=== PATIENT | female | born 1960 | race Caucasian/White ===

== ENCOUNTER → 2020-11-17 08:50 | Outpatient (CLI) | payer MEDICARE | END | disposition home or self-care (01) | LOC: D.US 08:50 | PROVIDERS: ATTEND Surgery | DX: N18.6 End stage renal disease (principal) ==

== ENCOUNTER 2020-11-29 05:18 | Observation (INO) | payer MEDICARE, OTHER ==
[~2020-11-29] VITALS: Ht 162.6 cm; Wt 114.8 kg
--- NOTE | ~2020-11-29 | OP ---
PATIENT NAME: GABRIEL MIN MEDICAL RECORD: [id number] :60 LOCATION:D.M2 D.2101 ADMISSION DATE:11/29/20 SURGEON: JONO RIZVI MD DATE OF OPERATION: 11/29/2020 She was operated on 11/29/2020. REFERRED BY: Dr. Menezes. PREOPERATIVE DIAGNOSES: End-stage renal disease, dependent on hemodialysis and morbid obesity due to excess calories. OPERATION PERFORMED: 1. Creation of right brachiocephalic arteriovenous fistula. 2. Laparoscopy with lysis of adhesions and implantation of a peritoneal dialysis catheter with a subcutaneous extension and presternal exit. SURGEON: Jono Rizvi MD PREOPERATIVE NOTE: Ms. Min is a 60-year-old quite obese white female patient with end-stage renal disease, who needs a fistula, but also wants to do or tried to do home peritoneal dialysis. She is to have a fistula created in her right upper extremity today, I am planning a brachial artery to cephalic vein AV fistula and also laparoscopic implantation of the PD catheter with sternal extension. DESCRIPTION OF PROCEDURE: Under general endotracheal anesthesia, the patient's arm first was prepped and draped in a sterile manner. I examined her with ultrasound and applied a venous tourniquet proximally and noted that the cephalic vein and median cubital vein and brachial artery were all very suitable for creation of a fistula. I made a transverse incision and exposed these vessels and controlled the artery with doubly looped Silastic tapes. The vein was dissected distally where it was then ligated and bevelled and divided, I then flushed with heparinized saline and treated with topical papaverine. The artery was occluded and a small arteriotomy was made and the artery then flushed proximally and distally with heparinized saline. The vein was swung over to the artery without any tension and the anastomosis was performed with running 7-0 Prolene. When I was completed, the occluding loops and clamps were released, there was excellent flow immediately within the fistula and the suture line was hemostatic. The wound was irrigated with saline and then closed with interrupted inverted 3-0 Vicryl and running intracuticular 4-0 Stratafix, Dermabond glue and dressed with Maxorb AG, Tegaderm, and Cavilon skin prep. Doppler examination of the fistula revealed excellent continuous pulsatile flow and there was preservation of good flow to the radial and ulnar arteries at the wrist. The patient was then prepped and draped for laparoscopy with a Ocampo catheter in place. A vertical incision was then made to the left of the umbilicus and carried down to the anterior rectus sheath. The site of this incision was determined by measuring with the peritoneal dialysis catheter with the intention of placing the deep Dacron felt cuff within the rectus just deep to the anterior sheath. A 5-mm XL Optiview port was then placed in the left upper quadrant and pneumoperitoneum established with carbon dioxide. I inserted 8 mm autosuture OPERATIVE REPORT [id number] GABRIEL MIN [facility] port with a radial dilating sheath in to the rectus sheath and then viewing with laparoscopy. I angled this downward towards the pelvis for a couple of inches before entering the peritoneal space. The catheter was inserted through the 8 mm sheath and it was then removed. The deeper or the Dacron felt cuff was then placed within the rectus and a pursestring suture placed in the anterior rectus sheath of 0 Vicryl and tied. Enterolysis was performed with electrocautery and scissors. There was some bleeding. There was no evidence of any trauma to adjacent organs. The insufflation was allowed to escape after which 2 liters of saline was run into the abdomen rapidly through the catheter and then siphoned out and very easily revealing a very nice function of the PD catheter itself. The laparoscopic port was removed and closed with Vicryl and Dermabond glue. The larger abdominal incision was irrigated with saline. I then measured on the patient's abdomen and chest for making a second incision and one was made to the left of the midline just about midway between the costal margin and the umbilicus. The initial catheter was pulled through a subcutaneous tunnel upwards to that a new incision and the extension was then placed in that tunnel and tunneled upward to a proposed insertion site where another incision was made to the right of the sternum. The catheter was trimmed to fit. A titanium connector was placed and 2-0 Prolene ties used to secure the catheter segments to the connector. The catheter was put in a subcutaneous tunnel with a dependent skin exit site over the sternum using the Marc tunneler, the catheter was then attached to a transfer device and then again irrigated with saline and aspirated, free return of saline confirmed, it was then heparin locked, clamped and capped. The incisions were closed with interrupted inverted 3-0 Vicryl and running intracuticular 4-0 Stratafix and Dermabond glue and dressed with Maxorb AG Tegaderm, Cavilon skin prep. The catheter at the exit site was dressed with a Biopatch and 4 x 4 bordered gauze. The patient at that point was awakened from her anesthetic and in stable condition, extubated and taken to the recovery room. Blood loss during the operation was trivial and certainly replaced. Sponges, instruments and needles were accounted for at the termination of the operation, no surgical specimen was submitted for histopathology. PLAN: The patient will stay in observation overnight and then probably have dialysis here tomorrow before being discharged to home where she can resume her usual diet and activities, and routine dialysis schedule. She can resume her Eliquis on Saturday morning. I expect the AV fistula will mature and be usable in 6 to 8 weeks. I expect to start peritoneal dialysis in 3-4, weeks. She will need to have the catheter flushed on Saturday of this week and then again next week and weekly and as often as needed to remove bloody fluid and fibrin and clots from the peritoneal cavity and from the catheter itself. TRANSINT:[id number] Voice Confirmation ID: [id number] DOCUMENT ID: [id number] JONO RIZVI MD CC: [id number] DICTATION DATE: 12/07/20 1145 CREDIT COMPLIANCE OFFICER: 12/07/20 1443 DIS IN 11/30/20 [facility] [address] [place] [address]
[2020-11-29 05:54] LABS: BASOPHILS 1.5 % (0-2); EOSINOPHILS 2.3 % (0-7); HEMATOCRIT 38.2 % (36.0-48.0); HEMOGLOBIN 12.6 g/dL (12-16); LYMPHOCYTES 13.4 % (15-50); MCH 30.3 pg (26.0-34.0); MCV 91.9 fL (80.0-100.0); MEAN PLATELET VOLUME 7.3 fL (7.4-10.4); MONOCYTES 8.2 % (2-11); NEUTROPHILS 74.6 % (40-80); PLATELET COUNT 379 10x3/uL (130-400); RBC 4.15 10x6/uL (4.00-5.40); RDW 16.5 % (11.5-14.5); WBC 12.1 10x3/uL (4.8-10.8)
[2020-11-29 06:03] LABS: INR 1.08 (0.85-1.17); PROTIME 12.9 SECONDS (11.6-15.0)
[2020-11-29] MEDS ORDERED: NORMODYNE / TR300 MG PO (06:20)
[2020-11-29] MEDS ORDERED: CARDURA2 MG PO (06:21)
[2020-11-29] MEDS ORDERED: LIPITOR40 MG PO (06:21)
[2020-11-29] MEDS ORDERED: PROTONIX40 MG PO (06:22)
[2020-11-29] MEDS ORDERED: PHOSLO667 MG PO (06:22)
[2020-11-29] MEDS ORDERED: SOLIQUA 100 UNIT3 ML SC (06:23)
[2020-11-29] MEDS ORDERED: FUROSEMIDE40 MG PO (06:23)
[2020-11-29] MEDS ORDERED: DOXYCYCLINE HY100 M2 PO (06:23)
[2020-11-29] MEDS ORDERED: CELEXA40 MG PO (06:24)
[2020-11-29] MEDS ORDERED: HYDRALAZINE HC100 MG PO (06:24)
[2020-11-29 06:25] LABS: ANION GAP 13.4 mmol/L (8-16); CALCIUM 9.8 mg/dL (8.5-10.1); CARBON DIOXIDE 27.4 mmol/L (21.0-32.0); CREATININE - SERUM 3.8 mg/dL (0.6-1.3); POTASSIUM - SERUM 3.8 mmol/L (3.5-5.1)
[2020-11-29] MEDS ORDERED: TORSEMIDE20 MG PO (06:25)
[2020-11-29] MEDS ORDERED: PLAVIX75 MG PO (06:25)
[2020-11-29] MEDS ORDERED: ELIQUIS5 MG PO (06:25)
[2020-11-29] MEDS ORDERED: ISOSORBIDE MONO60 M1 (06:26)
[2020-11-29] MEDS ORDERED: ALDACTONE50 MG PO (06:27)
[2020-11-29] MEDS ORDERED: NORVASC5 MG PO (06:27)
[2020-11-29] MEDS ORDERED: SYNTHROID150 MCG PO (06:28)
[2020-11-29 07:37] VITALS: BP 150/67; BMI 44.2
--- NOTE | 2020-11-29 14:45 | NUR ---
PT DENIES PAIN. SLEEPING COMFROTABLY.
[2020-11-29 15:14] VITALS: BP 118/61
--- NOTE | 2020-11-29 19:30 | NUR ---
PT IN BED, EYES CLOSED, RESP EVEN AND UNLABORED, NO DISTRESS NOTED, CL IN REACH, SR UP X 2.
[2020-11-29 21:04] VITALS: BP 140/45
[2020-11-30 00:14] VITALS: BP 126/57
--- NOTE | 2020-11-30 03:06 | NUR ---
I have reviewed this patient and I concur with the Shift Assessment completed by the Licensed Practical Nurse today this shift.
[2020-11-30 04:36] VITALS: BP 139/58
[2020-11-30 05:27] LABS: BASOPHILS 0.8 % (0-2); EOSINOPHILS 0.2 % (0-7); HEMATOCRIT 32.1 % (36.0-48.0); HEMOGLOBIN 10.6 g/dL (12-16); LYMPHOCYTES 7.6 % (15-50); MCH 30.6 pg (26.0-34.0); MCV 92.9 fL (80.0-100.0); MEAN PLATELET VOLUME 7.8 fL (7.4-10.4); MONOCYTES 7.5 % (2-11); NEUTROPHILS 83.9 % (40-80); PLATELET COUNT 337 10x3/uL (130-400); RBC 3.45 10x6/uL (4.00-5.40); RDW 16.5 % (11.5-14.5)
[2020-11-30 05:36] LABS: WBC 16.6 10x3/uL (4.8-10.8)
[2020-11-30 05:40] LABS: ANION GAP 15.4 mmol/L (8-16); CALCIUM 8.6 mg/dL (8.5-10.1); CARBON DIOXIDE 26.8 mmol/L (21.0-32.0); CREATININE - SERUM 4.7 mg/dL (0.6-1.3); PHOSPHOROUS 4.8 mg/dL (2.5-4.9); POTASSIUM - SERUM 4.2 mmol/L (3.5-5.1)
[2020-11-30 08:10] VITALS: BP 147/75
--- NOTE | 2020-11-30 08:39 | NUR ---
AM MEDS GIVEN WITH PRN MEDICATION. RIGHT ARM RESERVE SIGN PLACED ON DOOR AND ABOVE BED. RR EVEN NON LABORED ON ROOM AIR. PT AWAKE AND ALERT, NO NEEDS VOICED. CLWR .
--- NOTE | 2020-11-30 08:44 | NUR ---
PT REPORTED LAB SYDNEE HER AM LAB FROM HER RIGHT ARM. NOTIFIED VIKA MARIE WITH NEPHRO AT THIS TIME. NO NEW ORDERS PLACED.
--- NOTE | 2020-11-30 10:08 | NUR ---
PT IV TO LEFT UPPER ARM UNABLE TO FLUSH. PAIN WHEN ATTEMPTING TO FLUSH LINE. NEW IV STARTED TO LEFT FOREARM X1 ATTEMPT, BLOOD RETURN NOTED. PRN PAIN MEDICATION GIVEN D/T PAIN TO ABD AND RIGHT ARM. ICE WATER GIVEN, NO FURTHER NEEDS VOICED. CLWR.
[2020-11-30 10:50] VITALS: BP 119/39
[2020-11-30 12:46] VITALS: Ht 162.6 cm; Wt 114.8 kg
--- NOTE | 2020-11-30 15:53 | NUR ---
PT ARRIVED FROM [facility] AT THIS TIME. PT RR EVEN NON LABORED, PT STATES SHE IS READY TO GO HOME. NOTIFIED PT WE ARE WAITING ON A PRESCRIPTION. PT STATES UNDERSTANDING, DENIES NEEDING ASSISTANCE GETTING DRESSED. NO FURTHER NEEDS VOICED. CLWR.
--- NOTE | 2020-11-30 16:16 | NUR ---
D/C INSTRUCTIONS PROVIDED AT THIS TIME AND WRITTEN PRESCRIPTION GIVEN TO PT (COPY IN CHART). PT STATES UNDERSTANDING, DENIES ANY QUESTIONS. PT FAMILY IN ROUTE TO PICK PT UP. IV D/C, CATHETER INTACT, DRESSING APPLIED. CLWR.
--- NOTE | 2020-11-30 17:00 | NUR ---
PT WHEELED TO PRIVATE VEHICLE AT THIS TIME WITH ALL BELONGINGS AT THIS TIME WITH AIDE. NO DISTRESS NOTED ON DEPARTURE.
== END 2020-11-30 17:04 | disposition home or self-care (01) ==
LOC: D.OPS 05:18 → D.M2 14:59 → OBSVTIME 15:00 → D.M2 11-30 17:04
PROVIDERS: Internal Medicine Nephrology; ADMIT Surgery; ATTEND Surgery
DX: N18.6 End stage renal disease (principal); Z99.2 Dependence on renal dialysis; E66.01 Morbid (severe) obesity due to excess calories

== ENCOUNTER 2020-12-26 14:46 | Inpatient (IN) | payer MEDICARE, OTHER ==
[~2020-12-26] VITALS: Ht 162.6 cm; Wt 118.4 kg
--- NOTE | 2020-12-26 01:00 | NUR ---
CHANGED DRESSING TO PTS INFECTED INCISION ON LLQ OF ABDOMEN WHEN PT ARRIVED TO FLOOR FROM DIALYSIS. PTS 4X4 DRESSINGS ARE COMPLETELY SATURATED WITH BLOOD AT THIS TIME. NEW PRESSURE DRESSING PLACED W/ 2 ABD PADS & SILK TAPE.
[~2020-12-26 14:46] MED LIST: ALDACTONE50 MG PO; CARDURA2 MG PO; CELEXA40 MG PO; DOXYCYCLINE HY100 M2 PO; ELIQUIS5 MG PO; FUROSEMIDE40 MG PO; HYDRALAZINE HC100 MG PO; ISOSORBIDE MONO60 M1; LIPITOR40 MG PO; NORMODYNE / TR300 MG PO; NORVASC5 MG PO; PHOSLO667 MG PO; PLAVIX75 MG PO; PROTONIX40 MG PO; SOLIQUA 100 UNIT3 ML SC; SYNTHROID150 MCG PO; TORSEMIDE20 MG PO
--- NOTE | 2020-12-26 15:28 | NUR ---
RECEIVED PT TO ROOM 2112 VIA WHEELCHAIR. PT A/O X4, RESP EVEN AND NONLAOBORED ON RA. NOTICED ABD DRESSING SATURATED. PD CATH TO STERNAL AREA. RT AV FISTULA WITH BRUIT AND THRILL NOTED. ORIENTED PT TO ROOM AND CALL LIGHT, WILL ASSESS PT AND START PLAN OF CARE.
[2020-12-26 15:57] VITALS: BP 131/50
[2020-12-26 16:19] LABS: BASOPHILS 1.1 % (0-2); EOSINOPHILS 3.4 % (0-7)
[2020-12-26 16:20] LABS: LYMPHOCYTES 16.2 % (15-50); MCH 30.4 pg (26.0-34.0); MCHC 31.7 g/dL (31.0-37.0); MEAN PLATELET VOLUME 7.6 fL (7.4-10.4); MONOCYTES 8.4 % (2-11); NEUTROPHILS 70.9 % (40-80); PLATELET COUNT 388 10x3/uL (130-400); RBC 2.19 10x6/uL (4.00-5.40); RDW 17.1 % (11.5-14.5); WBC 8.2 10x3/uL (4.8-10.8)
[2020-12-26 16:25] LABS: ANION GAP 15.7 mmol/L (8-16); CALCIUM 8.1 mg/dL (8.5-10.1); CARBON DIOXIDE 25.4 mmol/L (21.0-32.0); CREATININE - SERUM 5.3 mg/dL (0.6-1.3); POTASSIUM - SERUM 4.1 mmol/L (3.5-5.1)
--- NOTE | 2020-12-26 16:32 | NUR ---
PT TO DIALYSIS, VIA BED, ANTIBIOTICS SENT DOWN WITH PT TO BE INFUSED DURING DIALYSIS.
[2020-12-26 16:55] LABS: HEMOGLOBIN 6.7 g/dL (12-16)
[2020-12-26 17:31] VITALS: BMI 45.0
[2020-12-26 20:00] VITALS: BP 133/71
--- NOTE | 2020-12-26 20:30 | NUR ---
REPORT RECEIVED. PT A&O, UP ON BEDSIDE. NO S/S OF DISTRESS OBSERVED. RR EVEN & UNLABORED ON RA. WILL ATTEMPT TO GAIN IV ACCESS THIS SHIFT. R CHEST HEMESPLIT, R AV FISTULA W/ BRUIT/THRILL; R ARM RESERVE. DRESSING CHANGES TO LLQ INFECTED INCISION, PD CATH SITE, AND H/S CATH SITE. BED LOCKED AND LOWERED, CL IN REACH. WILL CONT POC.
--- NOTE | 2020-12-26 23:00 | NUR ---
IV ACCESS GAINED; 20G L FA X4 STICKS. PT TOLERATED WELL. NO S/S OF DISTRESS OBSERVED. NO NEEDS VOICED AT THIS TIME.
[2020-12-27] VITALS: BP 132/55
[2020-12-27 04:00] VITALS: BP 131/50
[2020-12-27 07:11] LABS: EOSINOPHILS 5.4 % (0-7); HEMATOCRIT 23.5 % (36.0-48.0); LYMPHOCYTES 17.1 % (15-50); MCH 30.8 pg (26.0-34.0); MCHC 33.8 g/dL (31.0-37.0); MEAN PLATELET VOLUME 7.4 fL (7.4-10.4); MONOCYTES 10.5 % (2-11); PLATELET COUNT 360 10x3/uL (130-400); RBC 2.59 10x6/uL (4.00-5.40); RDW 16.1 % (11.5-14.5); WBC 7.3 10x3/uL (4.8-10.8)
[2020-12-27 07:28] LABS: INR 1.26 (0.85-1.17); PROTIME 14.7 SECONDS (11.6-15.0)
[2020-12-27 07:36] LABS: ANION GAP 13.9 mmol/L (8-16); CALCIUM 8.1 mg/dL (8.5-10.1); CARBON DIOXIDE 28.4 mmol/L (21.0-32.0); VANCOMYCIN - RANDOM 6.8 ug/mL (10.0-20.0)
[2020-12-27 07:37] LABS: CREATININE - SERUM 3.7 mg/dL (0.6-1.3); POTASSIUM - SERUM 3.3 mmol/L (3.5-5.1)
[2020-12-27 08:00] VITALS: BP 138/58
[2020-12-27 12:00] VITALS: BP 138/52
[2020-12-27 12:47] VITALS: Ht 162.6 cm; Wt 118.4 kg
--- NOTE | 2020-12-27 13:15 | NUR ---
PRE-OPS GIVEN. TO OR BY BED.
[2020-12-27 15:34] VITALS: BP 152/65
--- NOTE | 2020-12-27 15:42 | NUR ---
BACK FROM OR. VS WNL. W/V TO ABD CDI. WILL CONT. PLAN OF CARE.
--- NOTE | 2020-12-27 18:31 | MORECARE ---
CASE MANAGEMENT DISCHARGE SUMMARY PATIENT: GABRIEL MIN UNIT: [id number] ADM DATE: 12/26/20 AGE: 60 : 60 SEX: F ROOM/BED: [facility] AUTHOR: FUNMI LOZADA PHYSICIAN: REFERRING PHYSICIAN: SHARRI RUIZ MD DATE OF SERVICE: 12/27/20 Case Management Discharge Planning Summary DCP REVIEW SUMMARY ANTICIPATED D/C DATE: EXPECTED LOS : CASE STATUS: DCP Initiated INITIAL REVIEW: 12/26/2020 INITIAL REVIEWER: Mehnaz Maxwell FINAL DISCHARGE DISPOSITION: : FINAL REVIEWER: FINAL REVIEW DATE: DCP Focus Questions & Answers QUESTION: ANSWER : PATIENT: GABRIEL MIN ENCOUNTER: [id number] MEDICAL RECORD#: [id number] ADMISSION DATE: 12/26/2020 DISCHARGE DATE: ATTENDING MD: SHARRI TAYLOR : AGE: 60 MARITAL STATUS: W DC PLAN ID: [id number] FACILITY: [facility] PRINTED ON: 12/27/20 18:31 CT All edits/amendments must be made on the electronic document DICTATION DATE: 12/27/201830 CATALYST IMPREGNATOR: ANASTASIA 12/27/201830 RPT#: [id number] DC DATE: STATUS: ADM IN [facility] [address] [place] [address] END OF REPORT
[2020-12-27 19:00] VITALS: BP 124/44
--- NOTE | 2020-12-27 20:00 | NUR ---
REPORT RECEIVED. PT A&O, RESTING IN BED QUIETLY. NO S/S OF DISTRESS OBSERVED. RR EVEN & UNLABORED ON 2L. IV TO L FA PATENT, SL. BED LOCKED AND LOWERED, CL IN REACH. WILL CONT POC.
[2020-12-28] VITALS: BP 129/50
[2020-12-28 04:00] VITALS: BP 143/44
[2020-12-28 04:44] LABS: BASOPHILS 1.1 % (0-2); EOSINOPHILS 5.1 % (0-7); HEMATOCRIT 24.4 % (36.0-48.0); HEMOGLOBIN 8.1 g/dL (12-16); LYMPHOCYTES 18.9 % (15-50); MCH 30.6 pg (26.0-34.0); MCV 92.7 fL (80.0-100.0); MEAN PLATELET VOLUME 7.2 fL (7.4-10.4); MONOCYTES 11.6 % (2-11); NEUTROPHILS 63.3 % (40-80); PLATELET COUNT 375 10x3/uL (130-400); RBC 2.63 10x6/uL (4.00-5.40); RDW 16.3 % (11.5-14.5); WBC 7.6 10x3/uL (4.8-10.8)
[2020-12-28 05:03] LABS: RETIC 2.37 % (0.45-2.28)
[2020-12-28 05:11] LABS: % SATURATION 15 % (15-55); IRON 25 ug/dl (35-150); TOTAL IRON BIND CAPACITY 157 ug/dl (260-445); UNSAT IRON BIND CAPACITY 132 ug/dl (150-375)
[2020-12-28 05:44] LABS: ANION GAP 11.1 mmol/L (8-16); CALCIUM 8.5 mg/dL (8.5-10.1); CREATININE - SERUM 4.5 mg/dL (0.6-1.3); VANCOMYCIN - RANDOM 16.3 ug/mL (10.0-20.0)
[2020-12-28 05:50] LABS: POTASSIUM - SERUM 4.1 mmol/L (3.5-5.1)
--- NOTE | 2020-12-28 07:00 | NUR ---
PT LYING IN BED WITH HOB ELEVATED 45 DEGREES. RESP EVEN AND UNLABORED. AAO X4. O2 VIA NC AT [address] WOUND VAC IN PLACE. DENIES NEEDS AT THIS TIME. CLIR. BED IN LOWEST POSITION. SIDE RAILS X2
[2020-12-28 08:00] VITALS: BP 138/49
--- NOTE | 2020-12-28 08:55 | NUR ---
PT LEFT UNIT FOR DIALYSIS ACCOMPANIED BY HOSPITAL STAFF
--- NOTE | 2020-12-28 12:30 | NUR ---
PT RETURNED TO UNIT FROM DIALYSIS ACCOMPANIED BY HOSPITAL STAFF
--- NOTE | 2020-12-28 13:16 | MORECARE ---
CASE MANAGEMENT DISCHARGE SUMMARY PATIENT: GABRIEL MIN UNIT: [id number] ADM DATE: 12/26/20 AGE: 60 : 60 SEX: F ROOM/BED: [facility] AUTHOR: FUNMI LOZADA PHYSICIAN: REFERRING PHYSICIAN: SHARRI RUIZ MD DATE OF SERVICE: 12/28/20 Case Management Discharge Planning Summary DCP REVIEW SUMMARY ANTICIPATED D/C DATE: EXPECTED LOS : CASE STATUS: DCP Initiated INITIAL REVIEW: 12/26/2020 INITIAL REVIEWER: Mehnaz Maxwell FINAL DISCHARGE DISPOSITION: : FINAL REVIEWER: FINAL REVIEW DATE: DCP Focus Questions & Answers QUESTION: ANSWER : PATIENT: GABRIEL MIN ENCOUNTER: [id number] MEDICAL RECORD#: [id number] ADMISSION DATE: 12/26/2020 DISCHARGE DATE: ATTENDING MD: SHARRI TAYLOR : AGE: 60 MARITAL STATUS: W DC PLAN ID: [id number] FACILITY: [facility] PRINTED ON: 12/28/20 13:15 CT All edits/amendments must be made on the electronic document DICTATION DATE: 12/28/20 [address] YARN MAN: DM 12/28/20 1315 RPT#: [id number] DC DATE: STATUS: ADM IN [facility] [address] [place] [address] END OF REPORT
[2020-12-28 16:00] VITALS: BP 148/53
[2020-12-28 23:38] VITALS: BP 153/62
[2020-12-29 05:00] VITALS: BP 147/59
[2020-12-29 06:47] LABS: BASOPHILS 1.2 % (0-2); EOSINOPHILS 7.2 % (0-7); HEMATOCRIT 24.4 % (36.0-48.0); HEMOGLOBIN 8.1 g/dL (12-16); LYMPHOCYTES 24.5 % (15-50); MCH 30.9 pg (26.0-34.0); MCHC 33.3 g/dL (31.0-37.0); MCV 92.9 fL (80.0-100.0); MEAN PLATELET VOLUME 7.4 fL (7.4-10.4); MONOCYTES 12.2 % (2-11); NEUTROPHILS 54.9 % (40-80); PLATELET COUNT 390 10x3/uL (130-400); RBC 2.62 10x6/uL (4.00-5.40); RDW 16.2 % (11.5-14.5); WBC 6.4 10x3/uL (4.8-10.8)
[2020-12-29 07:06] LABS: ANION GAP 10.8 mmol/L (8-16); CALCIUM 8.6 mg/dL (8.5-10.1); CARBON DIOXIDE 30.1 mmol/L (21.0-32.0); CREATININE - SERUM 3.9 mg/dL (0.6-1.3); POTASSIUM - SERUM 3.9 mmol/L (3.5-5.1); VANCOMYCIN - RANDOM 21.1 ug/mL (10.0-20.0)
[2020-12-29 07:37] VITALS: BP 164/50
--- NOTE | 2020-12-29 12:44 | NUR ---
I have reviewed this patient and I concur with the Shift Assessment completed by the Licensed Practical Nurse today this shift.
[2020-12-29 15:41] VITALS: BP 120/58
--- NOTE | 2020-12-29 20:00 | NUR ---
REPORT RECEIVED. PT A&O, UP IN BED WATCHING TV. NO S/S OF DISTRESS OBSERVED. RR EVEN & UNLABORED ON RA. IV TO L FA PATENT. BED LOCKED AND LOWERED, CL IN REACH. WILL CPOC.
[2020-12-29 23:30] VITALS: BP 126/52
--- NOTE | 2020-12-30 03:03 | NUR ---
TELE IS ORDERED FOR PT BUT NO TELE AVAILABLE AT THIS TIME. WILL PLACE PT ON TELE SOON IT IS AVAILABLE.
[2020-12-30 04:11] VITALS: BP 129/50
[2020-12-30 05:19] LABS: BASOPHILS 0.8 % (0-2); EOSINOPHILS 5.4 % (0-7); HEMOGLOBIN 7.6 g/dL (12-16); LYMPHOCYTES 20.3 % (15-50); MCH 30.6 pg (26.0-34.0); MCHC 33.2 g/dL (31.0-37.0); MCV 92.4 fL (80.0-100.0); MEAN PLATELET VOLUME 7.4 fL (7.4-10.4); MONOCYTES 11.3 % (2-11); NEUTROPHILS 62.2 % (40-80); PLATELET COUNT 381 10x3/uL (130-400); RBC 2.49 10x6/uL (4.00-5.40); RDW 15.7 % (11.5-14.5)
[2020-12-30 05:39] LABS: ANION GAP 13.4 mmol/L (8-16); CALCIUM 8.5 mg/dL (8.5-10.1); CARBON DIOXIDE 28.2 mmol/L (21.0-32.0); PHOSPHOROUS 5.2 mg/dL (2.5-4.9); POTASSIUM - SERUM 3.6 mmol/L (3.5-5.1); VANCOMYCIN - RANDOM 19.3 ug/mL (10.0-20.0)
[2020-12-30 05:40] LABS: CREATININE - SERUM 5.2 mg/dL (0.6-1.3)
[2020-12-30 05:43] LABS: WBC 8.5 10x3/uL (4.8-10.8)
--- NOTE | 2020-12-30 07:22 | NUR ---
PTS IV INFILTRATED. REMOVED; CATHETER INTACT; 4X4 DRESSING IN PLACE. PT IS SUPPOSED TO GO HOME TODAY. PT REFUSED NEW IV ACCESS UNTIL DR. RUIZ SEES HER THIS AM.
[2020-12-30 07:42] VITALS: BP 138/45
--- NOTE | 2020-12-30 09:39 | NUR ---
PT LEFT UNIT FOR DIALYSIS ACCOMPANIED BY HOSPITAL STAFF
--- NOTE | 2020-12-30 09:55 | NUR ---
Nutrition Reassessment/Follow-up: Eating well. Ate 100% of breakfast this AM. Denies N/V/C/D, chewing/swallowing difficulty. HD today. Diet: Renal ADA Wt: 261# (12/27) Last BM: 12/29 Labs noted: K+ 3.6, BUN 41, Cre 5.2, GFR 9, Glu 121, Ca 8.5, PO4 5.2 Meds noted: Miralax, Humalog, Phoslo -Nutrition needs, Dx, & goals unchanged since initial assessment. -Continue current diet as tolerated. -RD will follow up within 5-7 days.
[2020-12-30] MEDS ORDERED: levaquin PO (11:39)
--- NOTE | 2020-12-30 13:00 | NUR ---
PT RETURNED TO UNIT FROM DIALLYSIS ACCOMPANIED BY HOSPITAL STAFF
--- NOTE | 2020-12-30 13:17 | NUR ---
IN DIALYSIS BY BED. WILL CONT. PLAN OF CARE.
--- NOTE | 2020-12-30 14:41 | NUR ---
PATIENT GONE TO DIALYSIS.
--- NOTE | 2020-12-30 14:48 | NUR ---
NURSE REPORTED ABDOMINAL WOUND MEASUREMENT L 18.5 CM X W 4.5 CM DURING WOUND VAC CHANGE
--- NOTE | 2020-12-30 15:43 | NUR ---
WOUND MEASUREMENTS BOTTOM WOUND L 7 CM X 3CM W X 3 CM D UPPER WOUND W 3 CM X L 4 CM X 3 CM D
--- NOTE | 2020-12-30 20:24 | MORECARE ---
CASE MANAGEMENT DISCHARGE SUMMARY PATIENT: GABRIEL MIN UNIT: [id number] ADM DATE: 12/26/20 AGE: 60 : 60 SEX: F ROOM/BED: D.[facility] AUTHOR: FUNMI LOZADA PHYSICIAN: REFERRING PHYSICIAN: SHARRI RUIZ MD DATE OF SERVICE: 12/30/20 Case Management Discharge Planning Summary COMMENTS ENTERED DATE: 12/30/20 19:56 CT COMMENT TYPE: Discharge Planning REVIEWER: Mehnaz Maxwell CM had spoken with Teresa earlier this week about chair placement for hemodialysis. CM was told today that Patient would have dialysis MWF in [place]. had tried to arrange for Wound vac for discharge also earlier this week. There was not a op report or measurements in the chart and was told that [facility] would not submit anything until measurements are received. CM spoke with patients nurse about needing measurement. CM was instructed that dressing will get changed on Saturday and measurements can be obtained at that time. CM called floor this am before 0800 requesting measurements. Patient had dialysis this am and returned back to room around 12:30. CM got measurements at 1440 and faxed everything to [facility]. CM set up Home Health with [facility] in [place]. CM faxed records to [facility] and they plan to see patient on Saturday for SOC. Patient is unhappy that we have not received approval for wound vac at this time. Awaiting insurance approval before unit can be delivered. CM will pass on with coworker to check with [facility] about wound vac approval [phone]. DCP REVIEW SUMMARY ANTICIPATED D/C DATE: EXPECTED LOS : CASE STATUS: DCP Initiated INITIAL REVIEW: 12/26/2020 INITIAL REVIEWER: Mehnaz Maxwell FINAL DISCHARGE DISPOSITION: : FINAL REVIEWER: FINAL REVIEW DATE: VTP Focus Questions & Answers QUESTION: ANSWER : PATIENT: GABRIEL MIN ENCOUNTER: [id number] MEDICAL RECORD#: [id number] ADMISSION DATE: 12/26/2020 DISCHARGE DATE: ATTENDING MD: SHARRI TAYLOR : AGE: 60 MARITAL STATUS: W DC PLAN ID: [id number] FACILITY: [facility] PRINTED ON: 12/30/20 20:24 CT All edits/amendments must be made on the electronic document DICTATION DATE: 12/30/202023 COMB FIXER: ANASTASIA 12/30/202023 RPT#: [id number] DC DATE: STATUS: ADM IN [facility] [address] [place] [address] END OF REPORT
[2020-12-30 21:06] VITALS: BP 151/59
--- NOTE | 2020-12-30 21:30 | NUR ---
WATCHING TV WITH NO COMMPLAINTS VOICED. RESP UNALBORED. WOUND VAC INTACT TO ABD WOUND. HEMOSPLIT INTACT TO RIGHT CHEST WITHOUT REDNESS OR EDEMA NOTED. CL IN REACH
[2020-12-31 02:09] VITALS: BP 148/68
--- NOTE | 2020-12-31 04:56 | NUR ---
I have reviewed this patient and I concur with the Shift Assessment completed by the Licensed Practical Nurse today this shift.
[2020-12-31 06:10] LABS: BASOPHILS 0.7 % (0-2); EOSINOPHILS 5.6 % (0-7); HEMATOCRIT 24.4 % (36.0-48.0); HEMOGLOBIN 8.1 g/dL (12-16); LYMPHOCYTES 18.7 % (15-50); MCH 30.9 pg (26.0-34.0); MCHC 33.4 g/dL (31.0-37.0); MCV 92.7 fL (80.0-100.0); MEAN PLATELET VOLUME 7.2 fL (7.4-10.4); PLATELET COUNT 391 10x3/uL (130-400); RBC 2.63 10x6/uL (4.00-5.40); RDW 16.4 % (11.5-14.5); WBC 8.7 10x3/uL (4.8-10.8)
--- NOTE | 2020-12-31 06:27 | NUR ---
IV ZOYSYN NOT GIVEN THIS SHIFT DUE TO IV BEING OUT FROM PREVIOUS SHIFT. PATIENT STATES SHE WAS SUPPOSED TO GO HOME BUT DIDNT AND WAS STARTED ON PO ANTIBIOTICS SO SHE DOESNT WANT TO BE RESTUCK FOR AND IV BECAUSE SHE IS GOING HOME TODAY.
[2020-12-31 06:46] LABS: ANION GAP 14.1 mmol/L (8-16); CALCIUM 8.9 mg/dL (8.5-10.1); CARBON DIOXIDE 27.8 mmol/L (21.0-32.0); CREATININE - SERUM 4.3 mg/dL (0.6-1.3); PHOSPHOROUS 4.3 mg/dL (2.5-4.9); POTASSIUM - SERUM 3.9 mmol/L (3.5-5.1); VANCOMYCIN - RANDOM 15.1 ug/mL (10.0-20.0)
[2020-12-31 06:47] VITALS: BP 143/62
[2020-12-31 09:11] VITALS: BP 141/47
--- NOTE | 2020-12-31 09:40 | NUR ---
PATIENT AAOX4, RESP EVEN AND NON LABORED, NO S/S OF DISTRESS AT THIS TIME, MEDICATIONS ADMISNITERED WITH NO COMPLICATIONS, NO FURTHER NEEDS AT THIS TIME, CLIR, BLP
--- NOTE | 2020-12-31 09:51 | NUR ---
STATED SHE HAD A BAD HEADACH AND WANTED TO SEE IF SHE IS GOING HOME TODAY WALKS 250 CGA
--- NOTE | 2021-01-01 14:09 | MORECARE ---
CASE MANAGEMENT DISCHARGE SUMMARY PATIENT: GABRIEL MIN UNIT: [id number] ADM DATE: 12/26/20 AGE: 60 : 60 SEX: F ROOM/BED: D.2960 AUTHOR: KIERRA,DOC PHYSICIAN: REFERRING PHYSICIAN: SHARRI RUIZ MD DATE OF SERVICE: 01/01/21 Case Management Discharge Planning Summary COMMENTS ENTERED DATE: 01/01/21 14:00 CT COMMENT TYPE: Discharge Planning REVIEWER: Abdiaziz Lopez Received notification from housekeeper head that the wound vac pump provided was the wrong pump to send home with the patient. supervisor fish processing stated that the patient was to go home with a "home" disposable pump that was in the supply box. The pump provided to case management was given to the patient. The [facility] with [facility] for a regular pump at $18.27 per day for SN: [id number] type VAC Acti RTM. Phone call with patient revealed that the pump SN at her house is [id number]. Notified housekeeper head. supervisor fish processing will communicate with Nurse Management. ENTERED DATE: 12/30/20 19:56 CT COMMENT TYPE: Discharge Planning REVIEWER: Mehnaz Maxwell CM had spoken with Teresa earlier this week about chair placement for hemodialysis. JOSE was told today that Patient would have dialysis MWF in [place]. JOSE had tried to arrange for Wound vac for discharge also earlier this week. There was not a op report or measurements in the chart and was told that [facility] would not submit anything until measurements are received. JOSE spoke with patients nurse about needing measurement. JOSE was instructed that dressing will get changed on Saturday and measurements can be obtained at that time. JOSE called floor this am before 0800 requesting measurements. Patient had dialysis this am and returned back to room around 12:30. JOSE got measurements at 1440 and faxed everything to [facility]. JOSE set up Home Health with [facility] in [place]. JOSE faxed records to [facility] and they plan to see patient on Saturday for SOC. Patient is unhappy that we have not received approval for wound vac at this time. Awaiting insurance approval before unit can be delivered. CM will pass on with coworker to check with [facility] about wound vac approval [phone]. [facility] REVIEW SUMMARY ANTICIPATED D/C DATE: EXPECTED LOS : CASE STATUS: DCP Initiated INITIAL REVIEW: 12/26/2020 INITIAL REVIEWER: Mehnaz Maxwell FINAL DISCHARGE DISPOSITION: : FINAL REVIEWER: FINAL REVIEW DATE: DCP Focus Questions & Answers QUESTION: ANSWER : PATIENT: GABRIEL MIN ENCOUNTER: [id number] MEDICAL RECORD#: [id number] ADMISSION DATE: 12/26/2020 DISCHARGE DATE: 12/31/2020 ATTENDING MD: SHARRI TAYLOR : AGE: 60 MARITAL STATUS: W DC PLAN ID: [id number] FACILITY: [facility] PRINTED ON: 01/01/21 14:09 CT All edits/amendments must be made on the electronic document DICTATION DATE: 01/01/211408 PIPE ORGAN TUNER AND REPAIRER: ANASTASIA 01/01/21 140 RPT#: [id number] DC DATE:12/31/20 STATUS: DIS IN [facility] [address] [place] [address] END OF REPORT
--- NOTE | 2021-01-01 17:37 | MORECARE ---
CASE MANAGEMENT DISCHARGE SUMMARY PATIENT: GABRIEL MIN UNIT: [id number] ADM DATE: 12/26/20 AGE: 60 : 60 SEX: F ROOM/BED: D.3346 AUTHOR: KIERRA,DOC PHYSICIAN: REFERRING PHYSICIAN: SHARRI RUIZ MD DATE OF SERVICE: 01/01/21 Case Management Discharge Planning Summary COMMENTS ENTERED DATE: 01/01/21 14:00 CT COMMENT TYPE: Discharge Planning REVIEWER: Abdiaziz Lopez Received notification from warehouse loader that the wound vac pump provided was the wrong pump to send home with the patient. show design supervisor stated that the patient was to go home with a "home" disposable pump that was in the supply box. The pump provided to case management was given to the patient. The patient contracted with [facility] for a regular pump at $18.27 per day for SN: [id number] type VAC Acti RTM. Phone call with patient revealed that the pump SN at her house is [id number]. Notified warehouse loader. show design supervisor will communicate with Nurse Management. ENTERED DATE: 12/30/20 19:56 CT COMMENT TYPE: Discharge Planning REVIEWER: Mehnaz Maxwell CM had spoken with Teresa earlier this week about chair placement for hemodialysis. JOSE was told today that Patient would have dialysis MWF in [place]. JOSE had tried to arrange for Wound vac for discharge also earlier this week. There was not a op report or measurements in the chart and was told that [facility] would not submit anything until measurements are received. JOSE spoke with patients nurse about needing measurement. JOSE was instructed that dressing will get changed on Saturday and measurements can be obtained at that time. JOSE called floor this am before 0800 requesting measurements. Patient had dialysis this am and returned back to room around 12:30. JOSE got measurements at 1440 and faxed everything to [facility]. JOSE set up Home Health with [facility] in [place]. JOSE faxed records to [facility] and they plan to see patient on Saturday for SOC. Patient is unhappy that we have not received approval for wound vac at this time. Awaiting insurance approval before unit can be delivered. CM will pass on with coworker to check with [facility] about wound vac approval [phone]. [facility] REVIEW SUMMARY ANTICIPATED D/C DATE: EXPECTED LOS : CASE STATUS: DCP Initiated INITIAL REVIEW: 12/26/2020 INITIAL REVIEWER: Mehnaz Maxwell FINAL DISCHARGE DISPOSITION: 06 : Discharged/Trans to Home Under Care of [facility] in Anticipation of Skilled Care FINAL REVIEWER: Mehnaz Maxwell FINAL REVIEW DATE: 01/01/2021 [facility] Focus Questions & Answers QUESTION: ANSWER : PATIENT: GABRIEL MIN ENCOUNTER: [id number] MEDICAL RECORD#: [id number] ADMISSION DATE: 12/26/2020 DISCHARGE DATE: 12/31/2020 ATTENDING MD: SHARRI TAYLOR : 1960 AGE: 60 MARITAL STATUS: W DC PLAN ID: [id number] FACILITY: [facility] PRINTED ON: 01/01/21 17:37 CT All edits/amendments must be made on the electronic document DICTATION DATE: 01/01/211736 TEMPLATE CLERK: ANASTASIA 01/01/211736 RPT#: [id number] DC DATE:12/31/20 STATUS: DIS IN [facility] [address] [place] [address] END OF REPORT
--- NOTE | 2021-01-01 17:50 | MORECARE ---
CASE MANAGEMENT DISCHARGE SUMMARY PATIENT: GABRIEL MIN UNIT: [id number] ADM DATE: 12/26/20 AGE: 60 : 60 SEX: F ROOM/BED: D.9181 AUTHOR: KIERRA,DOC PHYSICIAN: REFERRING PHYSICIAN: SHARRI RUIZ MD DATE OF SERVICE: 01/01/21 Case Management Discharge Planning Summary COMMENTS ENTERED DATE: 01/01/21 14:00 CT COMMENT TYPE: Discharge Planning REVIEWER: Abdiaziz Lopez Received notification from roundhouse worker that the wound vac pump provided was the wrong pump to send home with the patient. utilities and maintenance supervisor stated that the patient was to go home with a "home" disposable pump that was in the supply box. The pump provided to case management was given to the patient. The patient contracted with [facility] for a regular pump at $18.27 per day for SN: [id number] type VAC Acti RTM. Phone call with patient revealed that the pump SN at her house is [id number]. Notified roundhouse worker. utilities and maintenance supervisor will communicate with Nurse Management. ENTERED DATE: 12/30/20 19:56 CT COMMENT TYPE: Discharge Planning REVIEWER: Mehnaz Maxwell CM had spoken with Teresa earlier this week about chair placement for hemodialysis. JOSE was told today that Patient would have dialysis MWF in [place]. JOSE had tried to arrange for Wound vac for discharge also earlier this week. There was not a op report or measurements in the chart and was told that [facility] would not submit anything until measurements are received. JOSE spoke with patients nurse about needing measurement. JOSE was instructed that dressing will get changed on Saturday and measurements can be obtained at that time. JOSE called floor this am before 0800 requesting measurements. Patient had dialysis this am and returned back to room around 12:30. JOSE got measurements at 1440 and faxed everything to [facility]. JOSE set up Home Health with [facility] in [place]. JOSE faxed records to [facility] and they plan to see patient on Saturday for SOC. Patient is unhappy that we have not received approval for wound vac at this time. Awaiting insurance approval before unit can be delivered. CM will pass on with coworker to check with Deandre Donell about wound vac approval [id number]. DCP REVIEW SUMMARY ANTICIPATED D/C DATE: EXPECTED LOS : CASE STATUS: DCP Complete INITIAL REVIEW: 12/26/2020 INITIAL REVIEWER: Mehnaz Maxwell FINAL DISCHARGE DISPOSITION: 06 : Discharged/Trans to Home Under Care of Organized Home Health Service in Anticipation of Skilled Care FINAL REVIEWER: Mehnaz Maxwell FINAL REVIEW DATE: 01/01/2021 DCP Focus Questions & Answers DCP Screen QUESTION: ANSWER High Risk Factors: : Hosp related to CHF, COPD, DM, End Stage Ds, CVA, CA DCP Evaluation QUESTION: ANSWER Patient's ability to cope with chronic illness : d. No chronic illness Would patient like to participate in any Care Coordination programs (if applicable): : Not applicable Mental health screen: : No mental health history DCP Re-evaluation QUESTION: ANSWER Would patient like to participate in any Care Coordination programs (if applicable): : Not applicable PATIENT: GABRIEL MIN ENCOUNTER: [id number] MEDICAL RECORD#: [id number] ADMISSION DATE: 12/26/2020 DISCHARGE DATE: 12/31/2020 ATTENDING MD: SHARRI TAYLOR : AGE: 60 MARITAL STATUS: W DC PLAN ID: [id number] FACILITY: [facility] PRINTED ON: 01/01/21 17:49 CT All edits/amendments must be made on the electronic document DICTATION DATE: 01/01/211748 PRODUCTION CREW SUPERVISOR: ANASTASIA 01/01/211748 RPT#: [id number] DC DATE:12/31/20 STATUS: DIS IN [facility] [address] [place] [address] END OF REPORT
--- NOTE | 2021-01-01 18:03 | MORECARE ---
CASE MANAGEMENT DISCHARGE SUMMARY PATIENT: GABRIEL MIN UNIT: [id number] ADM DATE: 12/26/20 AGE: 60 : 60 SEX: F ROOM/BED: D.9523 AUTHOR: KIERRA,DOC PHYSICIAN: REFERRING PHYSICIAN: SHARRI RUIZ MD DATE OF SERVICE: 01/01/21 Case Management Discharge Planning Summary COMMENTS ENTERED DATE: 01/01/21 17:53 CT COMMENT TYPE: Discharge Planning REVIEWER: Mehnaz Maxwell CM received a call from [facility] with [facility] in [facility] to see when patient discharged and will plan to see patient on Saturday. ENTERED DATE: 01/01/21 14:00 CT COMMENT TYPE: Discharge Planning REVIEWER: Abdiaziz Lopez Received notification from laborer tan house that the wound vac pump provided was the wrong pump to send home with the patient. supervisor fertilizer processing stated that the patient was to go home with a "home" disposable pump that was in the supply box. The pump provided to case management was given to the patient. The patient contracted with [facility] for a regular pump at $18.27 per day for SN: [id number] type VAC Acti RTM. Phone call with patient revealed that the pump SN at her house is [id number]. Notified laborer tan house. supervisor fertilizer processing will communicate with Nurse Management. ENTERED DATE: 12/30/20 19:56 CT COMMENT TYPE: Discharge Planning REVIEWER: Mehnaz Maxwell CM had spoken with Teresa earlier this week about chair placement for hemodialysis. JOSE was told today that Patient would have dialysis MWF in [place]. JOSE had tried to arrange for Wound vac for discharge also earlier this week. There was not a op report or measurements in the chart and was told that [facility] would not submit anything until measurements are received. JOSE spoke with patients nurse about needing measurement. JOSE was instructed that dressing will get changed on Saturday and measurements can be obtained at that time. CM called floor this am before 0800 requesting measurements. Patient had dialysis this am and returned back to room around 12:30. CM got measurements at 1440 and faxed everything to [facility]. CM set up Home Health with [facility] in [place]. CM faxed records to [facility] and they plan to see patient on Saturday for SOC. Patient is unhappy that we have not received approval for wound vac at this time. Awaiting insurance approval before unit can be delivered. CM will pass on with coworker to check with Deandre [facility] about wound vac approval [phone]. DCP REVIEW SUMMARY ANTICIPATED D/C DATE: EXPECTED LOS : CASE STATUS: DCP Complete INITIAL REVIEW: 12/26/2020 INITIAL REVIEWER: Mehnaz Maxwell FINAL DISCHARGE DISPOSITION: 06 : Discharged/Trans to Home Under Care of Organized Home Health Service in Anticipation of Skilled Care FINAL REVIEWER: Mehnaz Maxwell FINAL REVIEW DATE: 01/01/2021 DCP Focus Questions & Answers DCP Screen QUESTION: ANSWER High Risk Factors: : Hosp related to CHF, COPD, DM, End Stage Ds, CVA, CA DCP Evaluation QUESTION: ANSWER Family / Caregiver's ability to cope with chronic illness: : a. Adequate (ability to meet patient's medical needs, ensures patient attends medical appts.) Patient gives permission to discuss discharge plans with: (name, relationship and number) : LOBO MARR [phone] Patient's ability to cope with chronic illness : d. No chronic illness Patient's current cognitive status: : *Oriented to person, place, situation, time and present Physical Status: : Independent with ADL's Does the patient have the ability to pay for or attain post discharge needs / services? : Yes Living Arrangements: : Home with Extended Family Is there a likelihood that the patient will require additional services to return to the preadmission environment? : Yes Baseline cognitive status: : *Oriented to person, place, situation, time and present Patient with capacity for self-care or can be cared for in same environment as prior to hospitalization? : Yes Results of this evaluation have been discussed with: : Patient Comments: : WILL NEED OUTPATIENT HEMO DIALYSIS CHAIR AND [facility] FOR WOUND CARE AND WOUND VAC Medication Management: : Patient states can read and understand medication labels Pharmacy name(s): : [facility] Does Patient have transportation to get home and to follow-up medical appointments when discharged from the hospital? : Yes Would patient like to participate in any Care Coordination programs (if applicable): : Not applicable Does the patient have electricity at home? : Yes Does the patient have running water in their house? : Yes Mental health screen: : No mental health history Psychosocial status: : Independent adult (18-64) Resources / Services in place: : Dialysis - home peritoneal DCP Re-evaluation QUESTION: ANSWER Would patient like to participate in any Care Coordination programs (if applicable): : Not applicable PATIENT: GABRIEL MIN ENCOUNTER: [id number] MEDICAL RECORD#: [id number] ADMISSION DATE: 12/26/2020 DISCHARGE DATE: 12/31/2020 ATTENDING MD: SHARRI TAYLOR : AGE: 60 MARITAL STATUS: W DC PLAN ID: [id number] FACILITY: [facility] PRINTED ON: 01/01/21 18:03 CT All edits/amendments must be made on the electronic document DICTATION DATE: 01/01/211802 CUSTOMER RELATIONS SPECIALIST: ANASTASIA 01/01/211802 RPT#: [id number] DC DATE:12/31/20 STATUS: DIS IN [facility] [address] [place] [address] END OF REPORT
--- NOTE | 2021-01-02 11:08 | MORECARE ---
CASE MANAGEMENT DISCHARGE SUMMARY PATIENT: GABRIEL MIN UNIT: [id number] ADM DATE: 12/26/20 AGE: 60 : 60 SEX: F ROOM/BED: D.0463 AUTHOR: KIERRA,DOC PHYSICIAN: REFERRING PHYSICIAN: SHARRI RUIZ MD DATE OF SERVICE: 01/02/21 Case Management Discharge Planning Summary COMMENTS ENTERED DATE: 01/01/21 17:53 CT COMMENT TYPE: Discharge Planning REVIEWER: Mehnaz Maxwell CM received a call from [facility] with [facility] in [facility] to see when patient discharged and will plan to see patient on Saturday. ENTERED DATE: 01/01/21 14:00 CT COMMENT TYPE: Discharge Planning REVIEWER: Abdiaziz Lopez Received notification from household appliances salesperson that the wound vac pump provided was the wrong pump to send home with the patient. motel food service supervisor stated that the patient was to go home with a "home" disposable pump that was in the supply box. The pump provided to case management was given to the patient. The patient contracted with [facility] for a regular pump at $18.27 per day for SN: [id number] type VAC Acti RTM. Phone call with patient revealed that the pump SN at her house is [id number]. Notified household appliances salesperson. motel food service supervisor will communicate with Nurse Management. ENTERED DATE: 12/30/20 19:56 CT COMMENT TYPE: Discharge Planning REVIEWER: Mehnaz Maxwell CM had spoken with Teresa earlier this week about chair placement for hemodialysis. JOSE was told today that Patient would have dialysis MWF in [place]. JOSE had tried to arrange for Wound vac for discharge also earlier this week. There was not a op report or measurements in the chart and was told that [facility] would not submit anything until measurements are received. JOSE spoke with patients nurse about needing measurement. JOSE was instructed that dressing will get changed on Saturday and measurements can be obtained at that time. CM called floor this am before 0800 requesting measurements. Patient had dialysis this am and returned back to room around 12:30. CM got measurements at 1440 and faxed everything to [facility]. CM set up Home Health with [facility] in [place]. CM faxed records to [facility] and they plan to see patient on Saturday for SOC. Patient is unhappy that we have not received approval for wound vac at this time. Awaiting insurance approval before unit can be delivered. CM will pass on with coworker to check with Deandre [facility] about wound vac approval [phone]. DCP REVIEW SUMMARY ANTICIPATED D/C DATE: EXPECTED LOS : CASE STATUS: DCP Complete INITIAL REVIEW: 12/26/2020 INITIAL REVIEWER: Mehnaz Maxwell FINAL DISCHARGE DISPOSITION: 06 : Discharged/Trans to Home Under Care of Organized Home Health Service in Anticipation of Skilled Care FINAL REVIEWER: Mehnaz Maxwell FINAL REVIEW DATE: 01/01/2021 DCP Focus Questions & Answers DCP Screen QUESTION: ANSWER High Risk Factors: : Hosp related to CHF, COPD, DM, End Stage Ds, CVA, CA DCP Evaluation QUESTION: ANSWER Family / Caregiver's ability to cope with chronic illness: : a. Adequate (ability to meet patient's medical needs, ensures patient attends medical appts.) Patient's current cognitive status: : *Oriented to person, place, situation, time and present Patient gives permission to discuss discharge plans with: (name, relationship and number) : LOBO MARR [phone] Patient's ability to cope with chronic illness : d. No chronic illness Does the patient have the ability to pay for or attain post discharge needs / services? : Yes Physical Status: : Independent with ADL's Is there a likelihood that the patient will require additional services to return to the preadmission environment? : Yes Living Arrangements: : Home with Extended Family Results of this evaluation have been discussed with: : Patient Patient with capacity for self-care or can be cared for in same environment as prior to hospitalization? : Yes Baseline cognitive status: : *Oriented to person, place, situation, time and present Comments: : WILL NEED OUTPATIENT HEMO DIALYSIS CHAIR AND [facility] FOR WOUND CARE AND WOUND VAC Medication Management: : Patient states can read and understand medication labels Pharmacy name(s): : [facility] Does Patient have transportation to get home and to follow-up medical appointments when discharged from the hospital? : Yes Would patient like to participate in any Care Coordination programs (if applicable): : Not applicable Does the patient have electricity at home? : Yes Does the patient have running water in their house? : Yes Mental health screen: : No mental health history Psychosocial status: : Independent adult (18-64) Resources / Services in place: : Dialysis - home peritoneal DCP Re-evaluation QUESTION: ANSWER Would patient like to participate in any Care Coordination programs (if applicable): : Not applicable PATIENT: GABRIEL MIN ENCOUNTER: [id number] MEDICAL RECORD#: [id number] ADMISSION DATE: 12/26/2020 DISCHARGE DATE: 12/31/2020 ATTENDING MD: SHARRI TAYLOR : AGE: 60 MARITAL STATUS: W DC PLAN ID: [id number] FACILITY: [facility] PRINTED ON: 01/02/21 11:08 CT All edits/amendments must be made on the electronic document DICTATION DATE: 01/02/211107 LOCKSTITCH LINING SETTER: ANASTASIA 01/02/21 1108 RPT#: [id number] DC DATE:12/31/20 STATUS: DIS IN [facility] [address] [place] [address] END OF REPORT
== END 2020-12-31 15:12 | disposition home health service (06) | DRG 981 ==
LOC: D.M2 14:46
PROVIDERS: Surgery; ADMIT Internal Medicine Nephrology; ATTEND Internal Medicine Nephrology
PROC: 0WPG0YZ Removal of Other Device from Peritoneal Cavity, Open Approach (ICD-10-PCS; principal; 2020-12-27 12:00)
DX: T85.71XA Infection and inflammatory reaction due to peritoneal dialysis catheter, initial encounter (principal); N18.6 End stage renal disease; Z68.41 Body mass index [BMI] 40.0-44.9, adult; I13.2 Hypertensive heart and chronic kidney disease with heart failure and with stage 5 chronic kidney disease, or end stage renal disease; D68.32 Hemorrhagic disorder due to extrinsic circulating anticoagulants; T81.30XA Disruption of wound, unspecified, initial encounter; L76.32 Postprocedural hematoma of skin and subcutaneous tissue following other procedure; Z99.2 Dependence on renal dialysis; E66.01 Morbid (severe) obesity due to excess calories; E11.21 Type 2 diabetes mellitus with diabetic nephropathy; Z79.4 Long term (current) use of insulin; I50.9 Heart failure, unspecified; E11.22 Type 2 diabetes mellitus with diabetic chronic kidney disease; Z95.5 Presence of coronary angioplasty implant and graft; I48.91 Unspecified atrial fibrillation; Z79.01 Long term (current) use of anticoagulants; K21.9 Gastro-esophageal reflux disease without esophagitis; K57.90 Diverticulosis of intestine, part unspecified, without perforation or abscess without bleeding; G89.29 Other chronic pain; M54.9 Dorsalgia, unspecified; D63.1 Anemia in chronic kidney disease; E83.39 Other disorders of phosphorus metabolism